=== PATIENT | male | born 1980 | race Caucasian/White ===

== ENCOUNTER 2018-07-19 00:26 | Emergency (ER) | payer MEDICAID, OTHER ==
[~2018-07-19] VITALS: Ht 167.6 cm; Wt 61.5 kg
[2018-07-19 01:10] VITALS: BP 113/72
[2018-07-19] MEDS ORDERED: IBUPROFEN 200 MG TABLET ONE (01:25)
[2018-07-19] MEDS ORDERED: IBUPROFEN 200 MG TABLET PO ONE (01:30)
== END 2018-07-19 01:57 | disposition home or self-care (01) ==
LOC: ED 01:30
DX: M20.011 Mallet finger of right finger(s) (principal)
CPT/HCPCS: 29130; 99284

== ENCOUNTER 2018-09-01 23:39 | Emergency (ER) | payer MEDICAID | END 2018-09-01 23:51 | disposition left against medical advice (07) | LOC: ED 23:48 | DX: Z53.21 Procedure and treatment not carried out due to patient leaving prior to being seen by health care provider (principal) ==

== ENCOUNTER 2019-04-16 12:10 | Emergency (ER) | payer SELFPAY ==
[~2019-04-16] VITALS: Ht 165.1 cm; Wt 61.5 kg
[2019-04-16 12:15] VITALS: BP 137/90
== END 2019-04-16 12:56 | disposition home or self-care (01) ==
LOC: ED 12:50
DX: L03.116 Cellulitis of left lower limb (principal); F17.200 Nicotine dependence, unspecified, uncomplicated
CPT/HCPCS: 99283

== ENCOUNTER 2019-05-04 11:16 | Emergency (ER) | payer MEDICAID ==
[~2019-05-04] VITALS: Ht 165.1 cm; Wt 60.6 kg
[2019-05-04 11:18] VITALS: BP 125/87
--- NOTE | 2019-05-04 11:50 | NUR ---
Yellow slip sent to pharmacy to request medication per [facility].
[2019-05-04] MEDS ORDERED: BICILLIN-LA 2,400,000 UNITS/4 ML IM ONE (12:00)
--- NOTE | 2019-05-04 12:28 | NUR ---
Patient given discharge instructions and they have confirmed that they understand the instructions. Patient ambulatory with steady gait. Pt left with all personal belongings and d/c paperwork. Pt aware of dc instructions.
== END 2019-05-04 12:30 | disposition home or self-care (01) ==
LOC: ED 12:03
DX: A53.9 Syphilis, unspecified (principal)
CPT/HCPCS: 96372; 99283; J0561